=== PATIENT | female | born 1950 | race Asian ===

== ENCOUNTER 2022-09-29 08:19 | Day surgery (SDC) | payer OTHER ==
[~2022-09-29] VITALS: Ht 160 cm; Wt 52.2 kg
[2022-09-29] MEDS ORDERED: fentaNYL citrate 0.05 MG/ML VIAL ONE (08:36)
[2022-09-29] MEDS ORDERED: MIDAZOLAM 5 MG/5 ML VIAL ONE (08:36)
[2022-09-29] MEDS ORDERED: diphenhydrAMINE 50 MG/ML VIAL ONE (08:36)
[2022-09-29] MEDS ORDERED: MIDAZOLAM 2 MG/2 ML VIAL IVP ONE (09:35)
[2022-09-29] MEDS ORDERED: fentaNYL citrate 0.05 MG/ML VIAL IVP ONE (09:35)
== END 2022-09-29 10:50 | disposition home or self-care (01) ==
LOC: MMU 08:19 → MOR 08:19
PROVIDERS: ATTEND Internal Medicine Gastroenterology
DX: Z12.11 Encounter for screening for malignant neoplasm of colon (principal); D12.2 Benign neoplasm of ascending colon; K29.50 Unspecified chronic gastritis without bleeding; K21.9 Gastro-esophageal reflux disease without esophagitis; Z90.49 Acquired absence of other specified parts of digestive tract; Z20.822 Contact with and (suspected) exposure to COVID-19; Z79.899 Other long term (current) drug therapy
CPT/HCPCS: 43239; 45385; 87426; J2250; J3010; J1200